=== PATIENT | female | born 1965 | race Two or more races ===

== ENCOUNTER 2018-11-08 10:31 | Day surgery (SDC) | payer OTHER ==
[~2018-11-08 10:31] MED LIST: PROGESTERONE100 MG PO; [UNRECOGNIZED DRUG - OTHER] PO
[2018-11-08] MEDS ORDERED: TYLENOL EXTRA500 MG PO (13:29)
== END 2018-11-08 17:10 ==
LOC: CIR.AMB 10:31
DX: N95.0 Postmenopausal bleeding (principal)